=== PATIENT | female | born 1995 | race Caucasian/White ===

== ENCOUNTER 2017-09-20 19:14 | Emergency (ER) | payer MEDICAID | END 2017-09-20 21:55 | disposition home or self-care (01) | LOC: FTE 19:14 | DX: F41.1 Generalized anxiety disorder (principal) | CPT/HCPCS: 71045; 99283-25 ==

== ENCOUNTER 2017-09-22 15:23 | Emergency (ER) | payer MEDICAID | END 2017-09-22 18:18 | disposition home or self-care (01) | LOC: FTE 18:18 | DX: R00.2 Palpitations (principal) | CPT/HCPCS: 93005; 99283-25 ==

== ENCOUNTER 2018-11-18 09:24 | Emergency (ER) | payer MEDICAID ==
[2018-11-18] MEDS: OLANZAPINE 5 MG TAB PO (10:08)
== END 2018-11-18 10:50 | disposition home or self-care (01) ==
LOC: E/R 09:24
DX: F41.9 Anxiety disorder, unspecified (principal)
CPT/HCPCS: 99283; Z7502